=== PATIENT | female | born 1990 | race Asian ===

== ENCOUNTER → 2018-04-06 16:04 | Outpatient (CLI) | payer OTHER, SELFPAY ==
--- NOTE | 2018-04-06 16:13 | DI.RAD.S_ITS ---
PROCEDURE: XR KNEE RT 3V INDICATIONS: right knee pain TECHNIQUE: 3 views of the knee were acquired. COMPARISON: None. FINDINGS: Bones: No fractures or dislocations. No suspicious bony lesions. Soft tissues: Suspect moderate joint effusion. No suspicious soft tissue calcifications. IMPRESSION: Moderate knee joint effusion. If clinical symptoms persist or clinical suspicion for internal derangement is high, MRI is suggested for further evaluation. Dictated by: Galo Gage M.D. on 04/06/2018 at 17:18 Approved by: Galo Gage M.D. on 04/06/2018 at 17:19
== END ==
PROVIDERS: Visit Provider Physician Assistant
DX: M25.561 Pain in right knee (principal); M25.461 Effusion, right knee
CPT/HCPCS: 73562

== ENCOUNTER → 2019-08-16 12:39 | Outpatient (CLI) | payer OTHER, SELFPAY ==
[2019-08-17 09:09] LABS: Strep Grp B PCR NEG for Grp B Strep
== END ==
DX: Z34.03 Encounter for supervision of normal first pregnancy, third trimester (principal)
CPT/HCPCS: 87653

== ENCOUNTER 2019-09-06 10:29 | Inpatient (IN) | payer OTHER, SELFPAY ==
--- NOTE | 2019-09-06 13:57 | PM.OBHP.1 ---
OB HPI History of Present Condition Chief complaint: OBSERVATION OF LABOR Narrative: Andra Mckeon is a 29 year old @38+5 presenting in early labor. She reports that she began having contractions overnight that became as often as q5 minutes and more painful this AM. She denies LOF, VB, decreased movement, or any other complaints obstetrical or otherwise. The patient has a complicated by a transfer of care from the [employer] in the 3rd trimester, but she has had no other complications. She has no contributory history. Evaluation Evaluation Baseline heart rate: 150 Variability: Moderate (11-25) monitor accelerations: Present monitor decelerations: Absent Contraction Frequency (minutes): 4 Uterine Contraction Intensity: Moderate Category of Tracing: I Cervical dilation (cm): 3 Cervical effacement (%): 80 station: -1 Laboratory results: GBS neg, rubella immune, hep b and Hep C negative, VZV non-immune, RPR neg PFSH Surgical History (Updated 08/08/19 @ 20:44 by Demi Solitario) Anesthesia (Resolved) H/O removal of cyst (Acute) History of surgical removal of pilonidal cyst (Resolved ~03/21/16) Family History (Updated 07/21/19 @ 11:19 by Griselda Escoto RN) Grandmother Cancer Grandmother Diabetes mellitus Family/Other Cervix abnormality Social History marital status: number of children: 0 household members: spouse pets and animals: No education level: college occupational status: employed special dave needs: No leisure activities: exercise Smoking Status: Never smoker Meds Home Medications and Allergies Home Medications Medication Instructions Recorded Confirmed Type prenat.vits,zackery,opp-tidu-qenme 1 tab PO DAILY 07/20/19 08/30/19 History Allergies Allergy/AdvReac Type Severity Reaction Status Date / Time No Known Drug Allergies Allergy Unverified 08/30/19 14:43 Review of Systems Constitutional Constitutional: Reports system reviewed and no additional complaints, except as documented Eyes Eyes: Reports system reviewed; no additional complaints, except as documented Cardiovascular Cardiovascular: Reports system reviewed; no additional complaints, except as documented Respiratory Respiratory: Reports system reviewed and no additional complaints, except as documented Gastrointestinal Gastrointestinal: Reports system reviewed and no additional complaints, except as documented Genitourinary Genitourinary: Reports as per HPI Musculoskeletal Musculoskeletal: Reports system reviewed; no additional complaints, except as documented Neurologic Neurologic: Reports system reviewed and no additional complaints, except as documented Exam Vital Signs (past 8 hours): 118/74, HR 108, 98%, afebrile Const General: cooperative, healthy appearing and comfortable Resp Effort & Inspection: normal respiratory effort Auscultation: clear to auscultation bilaterally Cardio Rate: regular rate Rhythm: regular rhythm GI Palpation: soft and No tender External Female Exam: external appearance normal Objective Labs Result Diagrams: 09/06/19 16:00 Assessment and Plan Assessment and Plan Assessment and Plan narrative: This patient presents and will be admitted in early labor. She has no complications, is GBS negative, and has reassuring status. The patient is encouraged to ambulate, with plan for serial cervical exams. - Ambulation encouraged - Clear liquid diet when more active - CBC, T&S - intermittent monitoring per protocol
[2019-09-06] MEDS: LACTATED RINGERS 1,000 ML 100 ML IV ×2 (16:00→21:02)
[2019-09-06 16:22] LABS: Add Manual Diff / Slide Review NO; Basophils Absolute Auto 0 /uL (0-100); Basophils Percent Auto 0.2 % (0-2); Eosinophils Absolute Auto 0 /uL (0-450); Eosinophils Percent Auto 0.1 % (2-4); Hematocrit 44.2 % (36-46); Lymphocytes Absolute Auto 1200 /uL (1100-4500); Lymphocytes Percent Auto 6.8 % (25-40); Mean Corpuscular HGB Conc 33.9 % (30-36); Mean Corpuscular Hemoglobin 31.1 PG (26-34); Mean Corpuscular Volume 91.7 fL (80-100); Monocytes Absolute Auto 600 /uL (0-900); Monocytes Percent Auto 3.3 % (3-14); Neutrophils Absolute Auto 15800 /uL (1500-7000); Neutrophils Percent Auto 89.6 % (50-75); Platelet Count 260 X10^3/uL (150-400); Red Blood Cell Count 4.82 X10^6/uL (4.0-5.2); Red Cell Distribution Width 13.8 % (11.6-14.8); White Blood Cell Count 17.6 X10^3/uL (4.5-11.0)
[2019-09-06 16:55] VITALS: BP 117/72
--- NOTE | 2019-09-06 17:40 | PM.OBPNLAB ---
Date/Time Date Patient Seen: 09/06/19 Time Patient Seen: 17:00 Pain Control Pain control: epidural Pelvic Exam Dilation (cm): 9 Effacement (%): 100 station: -1 Amniotic membrane status: Ruptured (AROM, clear fluid) Contractions Contractions on admission: regular Monitor mode: External Contraction frequency (min): 2 Contraction duration (min): 1 Contraction pattern: Regular Contraction phase: Resting Status status: Category l Heart Rate Baseline: 150 Monitor Accelerations: Present Monitor Decelerations: Absent Monitor Variability: Moderate Assessment and Plan Assessment: active labor Plan: continuous present management
[2019-09-06] MEDS: OXYTOCIN PREMIX 30 UNIT/500 ML PLAST..BAG IV (19:49)
--- NOTE | 2019-09-06 21:33 | PM.OBPNLAB ---
Date/Time Date Patient Seen: 09/06/19 Time Patient Seen: 21:11 Pain Control Pain control: tolerating well Comments: Patient reports pressure but no pain. Patient reports fatigue with poor pushing efforts, but would like to avoid VAVD or at this time. Pelvic Exam Dilation (cm): 10 Effacement (%): 100 station: +3 Amniotic membrane status: Ruptured (AROM, clear fluid) Contractions Monitor mode: External Contraction frequency (min): 2 Contraction pattern: Regular Contraction phase: Resting Contraction intensity: Moderate Status status: Category ll Heart Rate Baseline: 155 Monitor Accelerations: Present Monitor Decelerations: Recurrent Monitor Variability: Moderate Assessment and Plan Assessment: active labor Plan: continuous present management Comments: Periods of minimal variability. Discussed with patient the risks and benefits of VAVD and CS, that VAVD still requires maternal pushing efforts, and duration of second stage with effect on wellbeing. Patient to continue pushing for now, will reassess if status changes.
--- NOTE | 2019-09-06 23:02 | PM.OBPRVD ---
 Events: Labor Augmentation Labor & Delivery Delivery date: 09/06/19 Intrapartal events: Ineffective Pushing, Acceleration and Deceleration Cervical ripening method: none Induction method: none Delivery augmentation: rupture of membranes and pitocin Delivery monitor: external FHT and external uterine Route of delivery: vacuum extraction Indication for instrumentation: maternal exhaustion L&D Laceration Description: Perineal - 2nd Degree (4 apex 2nd degree perineal laceration) Delivery repair: vicryl Estimated blood loss (mL): 500 Anesthesia type: Epidural Narrative: This patient presented in early labor and spontaneously progressed to fully dilated, with AROM at 9cm for clear fluid. She began the pushing stage and pushed for 4 hours, though with frequent breaks and ineffective maternal effort throughout. She reached 3+ station spontaneously and began having minimal variability with variable decelerations with each contraction than began having a slow return to baseline. After discussion of the risks and benefits including more severe perineal laceration, hematomas, and failed VAVD requiring delivery, a vacuum assisted delivery was performed. The vacuum was applied for a total of three contractions with pressure released in between each contraction, with a time from first application to delivery of 8 minutes. The bladder was emptied just prior to application, EFW was 7#8, and the maternal pelvis was more than adequate. She was delivered of a healthy baby boy, apgars 8+9, weight 6#10. There were no immediate complications. Plan for aftercare: Routine care.
[2019-09-07] MEDS: IBUPROFEN 600 MG TABLET PO ×2 (06:47→20:24)
[2019-09-07] MEDS: LANOLIN OINT 7 GM 1 APPLIC TOP (12:07)
[2019-09-07] MEDS: DOCUSATE 250 MG CAPSULE PO (12:08)
[2019-09-07] MEDS: DERMOPLAST SPRAY 20% 60 ML 1 SPRAY TOP (12:08)
[2019-09-07] MEDS: PRENATAL VIT,CALC/IRON/FOLIC 1 TABLET 1 TAB PO (12:09)
--- NOTE | 2019-09-07 13:07 | P.PNOB_ITS ---
Subjective - OB Subjective Patient comments: no complaints, pain well controlled and tolerating diet baby status: doing well and nursing well Narrative: This patient is a 29-year-old now para 1 day 1 status post vacuum assisted vaginal delivery in the setting of maternal exhaustion. The delivery was otherwise uncomplicated, and the patient is recovering well and meeting goals. Patient remains mildly hypotensive and tachycardic with a stable H&H, with notably concentrated urine and poor p.o. fluid intake. As IV has already been removed, patient highly encouraged to p.o. hydrate today. Date Patient Seen: 09/07/19 Time Patient Seen: 12:30 Exam Const General: cooperative, healthy appearing and comfortable Resp Effort & Inspection: normal respiratory effort Auscultation: clear to auscultation bilaterally Cardio Rate: regular rate Rhythm: regular rhythm GI Palpation: soft and No tender Other: Fundus firm, far below u Other: Perineal laceration repair intact, no swelling or erythema, no discharge, no signs hematoma. Objective Labs Result Diagrams: 09/07/19 13:00 Labs: Laboratory Results - last 24 hr 09/06/19 09/06/19 16:00 16:00 WBC 17.6 H RBC 4.82 Hgb 15.0 Hct 44.2 MCV 91.7 MCH 31.1 MCHC 33.9 RDW 13.8 Plt Count 260 Neut % (Auto) 89.6 H Lymph % (Auto) 6.8 L [place] % (Auto) 3.3 Eos % (Auto) 0.1 L Baso % (Auto) 0.2 Neut # (Auto) 28356 H Lymph # (Auto) 1200 [place] # (Auto) 600 Eos # (Auto) 0 Baso # (Auto) 0 Blood Type O Positive Antibody Screen Negative Assessment & Plan Plan day: 1 plan OB: routine care Comments: This patient is a 29yo PPD1 s/p VAVD. The patient reports feeling well with no symptoms or complaints, and is meeting goals. Patient encouraged to hydrate aggressively, will continue close monitoring of vital signs. Time Spent With Patient Time: Total time spent is greater than 50% in coordination of care (as documented) at patient's floor/unit and/or counseling patient: Time with patient: less than 15 minutes
[2019-09-07 13:08] LABS: Hematocrit 34.9 % (36-46)
--- NOTE | 2019-09-08 08:26 | P.PNOB_ITS ---
Subjective - OB Subjective Patient comments: no complaints and pain well controlled [place] baby status: doing well [place] feeding status: exclusively breast feeding Narrative: This patient is a 29-year-old now para 1 day 2 status post vacuum assisted vaginal delivery for maternal exhaustion. Patient had presented in labor and progressed spontaneously. period has been uncomplicated, patient doing well today with no complaints, normal vitals, meeting goals and healing well. Date Patient Seen: 09/08/19 Time Patient Seen: 08:27 Exam Vital Signs (past 8 hours): 116/74, HR 82, afebrile Const General: cooperative, healthy appearing and comfortable Orientation: alert, awake and oriented x3 Resp Effort & Inspection: normal respiratory effort Auscultation: clear to auscultation bilaterally Cardio Rate: regular rate Rhythm: regular rhythm GI Palpation: soft and No tender Other: Perineal laceration repair appears to be healing well, no induration, no erythema, no drainage. Objective Labs Result Diagrams: 09/07/19 13:00 Labs: Laboratory Results - last 24 hr 09/07/19 13:00 Hgb 12.0 Hct 34.9 L Assessment & Plan Plan day: 2 plan OB: routine care, discharge home and follow up 6 weeks Comments: This patient is meeting goals and healing appropriately. precautions were discussed, patient to follow up in 4-6 weeks. Reasons for return discussed. All questions answered. Time Spent With Patient Time: Total time spent is greater than 50% in coordination of care (as documented) at patient's floor/unit and/or counseling patient: Time with patient: 15-24 minutes
--- NOTE | 2019-09-08 08:29 | P.DS_ITS ---
Discharge Providers Provider Date of admission: 09/06/19 10:29 Discharge Date: 09/08/19 Consults: 09/07/19 23:14 Consult to [employer] Information Clerk Routine Comment: Discharge provider: Chari Qureshi MD Summary Hospital Course Date Patient Seen: 09/08/19 Time Patient Seen: 08:29 Procedures: Vacuum assisted vaginal delivery Hospital Course: This patient presented at 38 weeks 5 days in spontaneous labor, and progressed to fully dilated without augmentation. The patient pushed for 3.5 hours, was augmented with a low-dose of Pitocin, and underwent a successful vacuum assisted vaginal delivery for maternal exhaustion. The delivery was otherwise uncomplicated with a second-degree perineal laceration repaired with Vicryl in the usual fashion. The patient's course has been uneventful, she is meeting goals and stable for discharge. Peripartum Data Delivery Method: Assisted Delivery Laceration description: Perineal - 2nd Degree complications: none [place] 1: Gender: Male Disposition of : home Status at Discharge Cognitive/behavioral status at discharge: oriented Functional status at discharge: independent ambulation Overall status at discharge: patient is progressing back to baseline Time Spent with Patient Time attestation: Total time spent providing and/or coordinating discharge services: Time spent: Less than 30 minutes Objective Labs Result Diagrams: 09/07/19 13:00 Labs: Laboratory Results - last 24 hr 09/07/19 13:00 Hgb 12.0 Hct 34.9 L Discharge Plan Discharge Plan Patient Disposition: Home Discharge orders & Medications Prescriptions: Continued prenat.vits,zackery,nxn-igfh-bjsex Tablet 1 tab PO DAILY RF: 0 Follow up/Referrals: Chari Qureshi MD [Physician] - 6 Weeks ( visit, possible IUD or nexplanon insertion) Diet/Activity/Treatments Diet: Regular Activity: Nothing in the vagina for 6 weeks, avoid heavy lifting for 6 weeks. Skin/Wound/Dressing Care Report to your healthcare provider any signs of infection, such as:: chills, fever, night sweats, increased pain, unusual drainage and unusual redness Other wound treatment: Keep perineal absent patient repair clean and dry. Visit Report/Discharge Packet Instructions: DI for Labor and Delivery, Vaginal Visit Report Forms: Patient Portal/API, Stroke Signs & Symptoms
[2019-09-08] MEDS: PRENATAL VIT,CALC/IRON/FOLIC 1 TABLET 1 TAB PO (09:36)
[2019-09-08] MEDS: IBUPROFEN 600 MG TABLET PO (09:36)
[2019-09-08] MEDS: DOCUSATE 250 MG CAPSULE PO (09:36)
== END 2019-09-08 14:50 | disposition home or self-care (01) | DRG 807 ==
PROVIDERS: Admitting Provider Obstetrics & Gynecology; Visit Provider Obstetrics & Gynecology
DX: O60.23X0 Term delivery with preterm labor, third trimester, not applicable or unspecified (principal); Z37.0 Single live birth; O26.813 Pregnancy related exhaustion and fatigue, third trimester; O70.1 Second degree perineal laceration during delivery; Z3A.38 38 weeks gestation of pregnancy
CPT/HCPCS: 01967; 59025; 59050; 59410; 85014; 85018; 85025; 86850; 86900; 86901; G0378; G0379; J2590